=== PATIENT | male | born 1990 ===

== ENCOUNTER 2019-07-01 07:47 | Outpatient (CLI) | payer OTHER ==
--- NOTE | 2019-07-01 10:43 | ULT ---
GALLBLADDER ULTRASOUND: HISTORY: Gallbladder polyp. FINDINGS: The pancreas is not well visualized due to overlying bowel gas. The liver and right kidney are denton l. The common duct measures 3 mm in diameter. No free fluid is seen in the Morison's pouch. Multiple nonshadowing immobile echogenic foci arising from the gallbladder wall are again noted measu ring up to 6 mm. IMPRESSION: Gallbladder polyps. POS: [facility]
== END 2019-07-01 07:48 | disposition home or self-care (01) ==
LOC: BICULT 07:47
PROVIDERS: ATTEND Internal Medicine
DX: R93.3 Abnormal findings on diagnostic imaging of other parts of digestive tract (principal); K82.4 Cholesterolosis of gallbladder
CPT/HCPCS: 76705